=== PATIENT | male | born 1945 | race Caucasian/White ===

== ENCOUNTER 2017-11-11 10:50 | Inpatient (IN) | payer OTHER, MEDICAID ==
[~2017-11-11] VITALS: Ht 182.9 cm; Wt 75.0 kg
[2017-11-11 11:32] LABS: BASOPHIL % 0.4 % (0-2); PLATELET COUNT 200 x10^3mcL (130-400); RED CELL DISTRIBUTION WIDTH 14.2 % (11.5-14.5)
[2017-11-11 11:46] LABS: CALCIUM 8.7 mg/dL (8.5-10.1); CARBON DIOXIDE 25.8 mmol/L (21-32); CHLORIDE SERUM 107 mmol/L (98-107); CREATININE SERUM 1.7 mg/dL (0.7-1.3); GLUCOSE SERUM 132 mg/dL (74-106); POTASSIUM SERUM 3.9 mmol/L (3.5-5.1); SODIUM SERUM 144 mmol/L (136-145)
[2017-11-11 11:58] LABS: T3 TOTAL 0.91 ng/mL
[2017-11-11 12:11] LABS: ALKALINE PHOSPHATASE 80 U/L (46-116); ALT/SGPT 94 U/L (16-63); AST/SGOT 263 U/L (15-37); BILIRUBIN TOTAL 0.73 mg/dL (0.20-1.00); CK-MB 24.2 ng/mL (0-3.6); TOTAL PROTEIN, SERUM 6.2 g/dL (6.4-8.2)
[2017-11-11 12:12] LABS: ALBUMIN 3.3 g/dL (3.4-5.0)
[2017-11-11 12:32] LABS: FREE T4 0.89 ng/dL (0.76-1.46); FREE THYROXINE INDEX 2.3 ug/dL (1.4-4.5); T4(THYROXINE) 6.9 ug/dL (4.7-13.3)
[2017-11-11] MEDS ORDERED: LOVAZA1 G1 PO (13:11)
[2017-11-11] MEDS ORDERED: NEPHRO-VITE VITA1 EA PO (13:12)
[2017-11-11] MEDS ORDERED: ZOCOR10 MG PO (13:12)
[2017-11-11] MEDS ORDERED: OMEPRAZOLE40 M1 PO (13:12)
[2017-11-11] MEDS ORDERED: THE MEDICINE S400 I1 PO (13:12)
[2017-11-11] MEDS ORDERED: DEPAKOTE500 MG PO (13:13)
[2017-11-11 13:14] LABS: UA SPECIFIC GRAVITY 1.015 (1.005-1.035); microscopic required? YES; urine erythrocyte 3+ (NEGATIVE)
[2017-11-11] MEDS ORDERED: LEVAQUIN750 MG PO (13:14)
[2017-11-11 13:15] LABS: MAGNESIUM 1.7 mg/dL (1.8-2.4); PHOSPHOROUS 2.9 mg/dL (2.5-4.9)
[2017-11-11 13:18] LABS: ERYTHROCYTE SED RATE 27 mm/hr (0-20)
[2017-11-11 13:25] LABS: CHOLESTEROL/HDL RATIO 2.2
[2017-11-11 14:34] VITALS: BP 133/75
[2017-11-11 14:38] VITALS: Ht 182.9 cm; Wt 75.0 kg
[2017-11-11] MEDS ORDERED: COLACE100 MG PO (14:54)
[2017-11-11] MEDS ORDERED: CLOZAPINE100 MG PO (14:55)
[2017-11-11] MEDS ORDERED: PRI20 PO (14:56)
[2017-11-11] MEDS ORDERED: IBUPROFEN400 MG PO (14:58)
[2017-11-11 16:00] LABS: IRON 63 ug/dL (65-170)
[2017-11-11 16:02] LABS: RED BLOOD CELLS 3.78 M/mm3 (4.52-5.90)
[2017-11-11 16:03] LABS: TOTAL IRON BINDING CAPACITY 206 ug/dL (250-450)
[2017-11-11 17:10] VITALS: BP 134/73
[2017-11-11 20:57] VITALS: BP 117/71
[2017-11-12 05:53] VITALS: BP 114/71
[2017-11-12 06:14] LABS: CALCIUM 8.3 mg/dL (8.5-10.1); CARBON DIOXIDE 30.6 mmol/L (21-32); CHLORIDE SERUM 110 mmol/L (98-107); CREATININE SERUM 1.4 mg/dL (0.7-1.3); GLUCOSE SERUM 109 mg/dL (74-106); MAGNESIUM 2.8 mg/dL (1.8-2.4); PHOSPHOROUS 3.6 mg/dL (2.5-4.9); POTASSIUM SERUM 3.9 mmol/L (3.5-5.1); SODIUM SERUM 147 mmol/L (136-145)
[2017-11-12 06:57] LABS: BASOPHIL % 0.4 % (0-2); PLATELET COUNT 186 x10^3mcL (130-400)
[2017-11-12 06:58] LABS: RED CELL DISTRIBUTION WIDTH 14.6 % (11.5-14.5)
[2017-11-12 09:37] VITALS: BP 121/70
[2017-11-12 13:42] VITALS: BP 119/69
[2017-11-12 18:11] VITALS: BP 110/72
[2017-11-12 22:33] VITALS: BP 109/67
[2017-11-13 06:10] LABS: BASOPHIL % 0.4 % (0-2); PLATELET COUNT 188 x10^3mcL (130-400); RED CELL DISTRIBUTION WIDTH 14.5 % (11.5-14.5)
[2017-11-13 06:28] VITALS: BP 118/70
[2017-11-13 06:40] LABS: CALCIUM 8.2 mg/dL (8.5-10.1); CARBON DIOXIDE 28.9 mmol/L (21-32); CHLORIDE SERUM 111 mmol/L (98-107); CREATININE SERUM 1.1 mg/dL (0.7-1.3); GLUCOSE SERUM 98 mg/dL (74-106); MAGNESIUM 2.5 mg/dL (1.8-2.4); PHOSPHOROUS 3.5 mg/dL (2.5-4.9); SODIUM SERUM 153 mmol/L (136-145)
[2017-11-13 08:40] VITALS: BP 122/74
[2017-11-13 12:51] VITALS: BP 108/72
[2017-11-13 17:51] VITALS: BP 119/80
[2017-11-13 20:59] VITALS: BP 98/55
[2017-11-14 06:48] VITALS: BP 116/74
[2017-11-14 06:51] LABS: BASOPHIL % 0.5 % (0-2); PLATELET COUNT 183 x10^3mcL (130-400)
[2017-11-14 06:56] LABS: RED CELL DISTRIBUTION WIDTH 14.6 % (11.5-14.5)
[2017-11-14 07:44] LABS: CALCIUM 8.5 mg/dL (8.5-10.1); CARBON DIOXIDE 30.5 mmol/L (21-32); CHLORIDE SERUM 111 mmol/L (98-107); CREATININE SERUM 1.2 mg/dL (0.7-1.3); GLUCOSE SERUM 96 mg/dL (74-106); MAGNESIUM 2.1 mg/dL (1.8-2.4); PHOSPHOROUS 3.9 mg/dL (2.5-4.9); POTASSIUM SERUM 3.7 mmol/L (3.5-5.1); SODIUM SERUM 147 mmol/L (136-145)
[2017-11-14 09:52] VITALS: BP 105/66
[2017-11-14 16:46] VITALS: BP 126/57
[2017-11-14 21:27] VITALS: BP 115/71
[2017-11-15 05:56] VITALS: BP 120/63
[2017-11-15 07:11] LABS: BASOPHIL % 0.4 % (0-2); PLATELET COUNT 181 x10^3mcL (130-400); RED CELL DISTRIBUTION WIDTH 14.4 % (11.5-14.5)
[2017-11-15 07:46] LABS: CALCIUM 8.2 mg/dL (8.5-10.1); CARBON DIOXIDE 29.1 mmol/L (21-32); CHLORIDE SERUM 112 mmol/L (98-107); CREATININE SERUM 1.1 mg/dL (0.7-1.3); GLUCOSE SERUM 105 mg/dL (74-106); MAGNESIUM 2.1 mg/dL (1.8-2.4); PHOSPHOROUS 3.4 mg/dL (2.5-4.9); POTASSIUM SERUM 3.7 mmol/L (3.5-5.1); SODIUM SERUM 149 mmol/L (136-145)
[2017-11-15 09:12] VITALS: BP 123/70
[2017-11-15] MEDS ORDERED: LEVAQUIN750 MG PO (16:57)
[2017-11-15] MEDS ORDERED: LAC PO (16:57)
[2017-11-15] MEDS ORDERED: CLEOCIN HCL300 MG PO (16:58)
[2017-11-15 17:06] VITALS: BP 108/80
== END 2017-11-15 18:50 | DRG 177 ==
LOC: ED 10:50 → DU 12:36 → MU 11-13 14:47
PROVIDERS: Family Medicine; Specialist
DX: J69.0 Pneumonitis due to inhalation of food and vomit (principal); N17.0 Acute kidney failure with tubular necrosis; G93.41 Metabolic encephalopathy; M62.82 Rhabdomyolysis; E44.1 Mild protein-calorie malnutrition; D68.9 Coagulation defect, unspecified; E87.0 Hyperosmolality and hypernatremia; K21.9 Gastro-esophageal reflux disease without esophagitis; R31.9 Hematuria, unspecified; E83.51 Hypocalcemia; E83.42 Hypomagnesemia; N28.1 Cyst of kidney, acquired; K80.20 Calculus of gallbladder without cholecystitis without obstruction; I34.0 Nonrheumatic mitral (valve) insufficiency; I36.1 Nonrheumatic tricuspid (valve) insufficiency; K76.0 Fatty (change of) liver, not elsewhere classified; D64.9 Anemia, unspecified; F20.9 Schizophrenia, unspecified; F17.210 Nicotine dependence, cigarettes, uncomplicated; Z68.23 Body mass index [BMI] 23.0-23.9, adult; Z74.01 Bed confinement status
CPT/HCPCS: 36600; 83880; 84439; 87804; 92610-GN; 94150; 97110-GP; 97116-GP; 97530-GP; J1630; J1940; J2543; J3475; J7030; J7620; Q0092